=== PATIENT | female | born 1995 | race African-American/Black ===

== ENCOUNTER 2016-06-10 10:23 | Emergency (ER) | payer BC ==
[~2016-06-10 10:23] MED LIST: BENTYL20 MG PO; CYCLOBENZAPRINE5 M1 PO; IBUPROFEN400 M1 PO; PREDNISONE; PRILOSEC20 M1 PO; TRAMADOL HCL50 M2 PO; XOPENEX HFA15 G1 IH; ZITHROMAX250MG Z-PAK PO; ZOFRAN ODT4 MG/UDTAB PO; ZOFRAN4 MG PO
[2016-06-10] MEDS ORDERED: BENADRYL25 M3 PO (11:02)
[2016-06-10] MEDS ORDERED: PEPCID20 M1 PO (11:51)
[2016-06-10] MEDS ORDERED: DELTASONE20 MG PO (11:51)
== END 2016-06-10 12:46 ==
LOC: EDMED 10:23
DX: T78.40XA Allergy, unspecified, initial encounter (principal)
CPT/HCPCS: J7512